=== PATIENT | female | born 1970 | race Caucasian/White ===

== ENCOUNTER 2020-04-23 23:24 | Emergency (ER) | payer BC ==
[~2020-04-23] VITALS: Ht 172.7 cm; Wt 83.5 kg
[~2020-04-23 23:24] MED LIST: VENL75CE5 PO
[2020-04-23 23:32] VITALS: BP 153/99
--- NOTE | 2020-04-23 23:35 | NUR ---
ERMD EVALUATING PT IN TENT
[2020-04-23] MEDS ORDERED: DICYCLOMINE 10 MG CAP PO ONE (23:40)
[2020-04-23] MEDS ORDERED: LOPERAMIDE 2 MG CAP PO ONE (23:40)
[2020-04-23] MEDS ORDERED: ONDANSETRON 4 MG ODT PO ONE (23:40)
[2020-04-23 23:42] VITALS: BP 153/99
--- NOTE | 2020-04-23 23:42 | NUR ---
49 Y/O FEMALE. COVID + SINCE 04/15/20. C/O NAUSEA, VOMITING, DIARRHEA. DENIES ANY PAIN. MEDHX: DENIES ALLERGIES: COEDINE, AMOXICILLIN, PENICILLIN
--- NOTE | 2020-04-24 00:25 | NUR ---
Patient discharged with v/s stable. Written and verbal after care instructions given and explained. Patient alert, oriented and verbalized understanding of instructions. Ambulatory with steady gait. All questions addressed prior to discharge. ID band removed. Patient advised to follow up with PMD. Rx of loperamide and zofran given. Patient educated on indication of medication including possible reaction and side effects. Opportunity to ask questions provided and answered.
== END 2020-04-24 00:25 | disposition home or self-care (01) ==
LOC: MED 23:24
DX: A08.4 Viral intestinal infection, unspecified (principal); Z88.0 Allergy status to penicillin; Z88.1 Allergy status to other antibiotic agents; Z88.5 Allergy status to narcotic agent; Z79.899 Other long term (current) drug therapy; Z98.890 Other specified postprocedural states
CPT/HCPCS: 99284; Q0162

== ENCOUNTER 2021-01-16 03:36 | Emergency (ER) | payer BC ==
[~2021-01-16] VITALS: Ht 172.7 cm; Wt 83.9 kg
[2021-01-16 03:40] VITALS: BP 175/89
[2021-01-16] MEDS ORDERED: predniSONE 20 MG TAB PO ONE (04:05)
[2021-01-16] MEDS ORDERED: diphenhydrAMINE 50 MG CAP PO ONE (04:05)
[2021-01-16] MEDS ORDERED: PRED20TA5 PO (04:40)
[2021-01-16] MEDS ORDERED: PRED50TA2 PO (04:43)
[2021-01-16 04:47] VITALS: BP 167/82
== END 2021-01-16 04:47 | disposition home or self-care (01) ==
LOC: MED 03:36
DX: L53.9 Erythematous condition, unspecified (principal); R21 Rash and other nonspecific skin eruption; T39.1X5A Adverse effect of 4-Aminophenol derivatives, initial encounter; T40.2X5A Adverse effect of other opioids, initial encounter; Z79.899 Other long term (current) drug therapy; Z88.0 Allergy status to penicillin; Z88.5 Allergy status to narcotic agent; Y92.89 Other specified places as the place of occurrence of the external cause
CPT/HCPCS: 99283; J7512; Q0163

== ENCOUNTER 2021-01-16 05:20 | Emergency (ER) | payer BC ==
[~2021-01-16] VITALS: Ht 172.7 cm; Wt 83.9 kg
[~2021-01-16 05:20] MED LIST changes: +PRED20TA5 PO; +PRED50TA2 PO
[2021-01-16 05:22] VITALS: BP 178/100
[2021-01-16] MEDS ORDERED: EPINEPHrine 1 MG/ML AMP ONE (05:31)
[2021-01-16] MEDS ORDERED: LORazepam 1 MG TAB PO ONE (05:35)
[2021-01-16 06:59] VITALS: BP 119/64
== END 2021-01-16 06:34 | disposition home or self-care (01) ==
LOC: MED 05:20
DX: T78.49XA Other allergy, initial encounter (principal); Z79.899 Other long term (current) drug therapy; Z88.0 Allergy status to penicillin; Z88.5 Allergy status to narcotic agent; X58.XXXA Exposure to other specified factors, initial encounter
CPT/HCPCS: 99283; J0171

== ENCOUNTER 2021-05-25 20:45 | Emergency (ER) | payer BC ==
[~2021-05-25] VITALS: Ht 172.7 cm; Wt 86.2 kg
[2021-05-25 21:00] VITALS: BP 204/84
--- NOTE | 2021-05-25 21:00 | NUR ---
to bed ambulatory
--- NOTE | 2021-05-25 21:05 | NUR ---
50 YO/F BIB SELF W C/O L SIDED LOWER TOOTH ACHE/INFECTION X2 DAYS 01/10 NON RAD, +N/D. PT REPORTS TEETH DAMAGE FROM REGURGITATION D/T HX OF GASTRIC SLEEVE. PT DENIES ANY FEVERS OR CHILLS. PT TOOK NORCO AT 1600 W/O RELIEF. PT BP 211/103 WHICH PT RELATES TO HAVING PAIN, DENIES BLURRY VISION, OR DIZZYNESS. PT SITTING IN BED LOCKED IN LOWEST POSITION. BREATHING EVEN AND UNLABORED. NAD NOTED, WILL CONTINUE TO MONITOR. PMH: GASTRIC SLEEVE ALLERGIES: AMOXICILLIN, PENICILLIN, CODEINE
--- NOTE | 2021-05-25 21:10 | NUR ---
PT BP 211/103. ERMD AWARE.
[2021-05-25] MEDS ORDERED: CLIN300C2 PO (21:20)
[2021-05-25] MEDS ORDERED: MORPHINE SULFATE 4 MG/ML SYR IM ONE (21:20)
--- NOTE | 2021-05-25 21:25 | NUR ---
PT EDUCATED ON MORPHINE SIDE EFFECTS. PT REPORTS WILL BE DRIVING HER HOME.
--- NOTE | 2021-05-25 21:48 | NUR ---
Patient discharged with v/s stable. Written and verbal after care instructions given and explained. Patient alert, oriented and verbalized understanding of instructions. Ambulatory with steady gait. All questions addressed prior to discharge. ID band removed. Patient advised to follow up with PMD. Rx of CLEOCIN given. Patient educated on indication of medication including possible reaction and side effects. Opportunity to ask questions provided and answered.
[2021-05-25 21:49] VITALS: BP 204/84
== END 2021-05-25 21:48 | disposition home or self-care (01) ==
LOC: MED 20:45
DX: K08.89 Other specified disorders of teeth and supporting structures (principal); Z88.0 Allergy status to penicillin; Z88.1 Allergy status to other antibiotic agents; Z88.5 Allergy status to narcotic agent; Z79.899 Other long term (current) drug therapy; Z98.890 Other specified postprocedural states; Z88.8 Allergy status to other drugs, medicaments and biological substances
CPT/HCPCS: 81002; 99283; J2270

== ENCOUNTER 2023-03-04 11:19 | Observation (INO) | payer BC ==
[~2023-03-04] VITALS: Ht 172.7 cm; Wt 70.8 kg
[2023-03-04] VITALS (7 sets, daily range): BP systolic 123–143; BP diastolic 60–81; PULSE 74–84; RESP 16–18; TEMP 98–99; O2SAT 99
[~2023-03-04 11:19] MED LIST changes: +CLIN300C2 PO
[2023-03-04] MEDS ORDERED: LACTATED RINGERS 1,000 ML IV STA (11:46)
[2023-03-04 12:25] LABS: BASOPHILS % (AUTO) 0.3 % (0.0-2.0); EOSINOPHILS % (AUTO) 0.1 % (0.0-4.0); HEMATOCRIT 37.2 % (36-48); HEMOGLOBIN 13.2 g/dL (12.0-16.0); LYMPHOCYTES # (AUTO) 0.9 K/uL (2.5-16.5); LYMPHOCYTES % (AUTO) 7.7 % (20.5-51.1); MEAN CORPUSCULAR HEMOGLOBIN 31 pg (27-31); MEAN CORPUSCULAR HGB CONC 36 g/dL (33-37); MEAN CORPUSCULAR VOLUME 86.1 fL (80-94); MONOCYTES # (AUTO) 0.8 K/uL (0.8-1.0); MONOCYTES % (AUTO) 6.5 % (1.7-9.3); NEUTROPHILS # (AUTO) 10.1 K/uL (1.8-7.7); NEUTROPHILS % (AUTO) 85.4 % (42.2-75.2); PLATELET COUNT (AUTO) 359 K/uL (140-450); RED BLOOD CELL COUNT(AUTO) 4.32 MIL/uL (4.20-5.40); RED CELL DISTRIBUTION WIDTH 14.5 % (11.6-13.7); WHITE BLOOD COUNT (AUTO) 11.9 K/uL (4.8-10.8)
[2023-03-04] MEDS ORDERED: ONDANSETRON 4 MG/2 ML VIAL IVP ONE (13:10)
[2023-03-04 13:15] LABS: ALANINE AMINOTRANSFERASE 18 U/L (12-78); ALBUMIN 3.9 g/dL (3.4-5.0); ALKALINE PHOSPHATASE 100 U/L (50-136); ANION GAP 13.1 (8-16); ASPARTATE AMINOTRANSFERASE 17 U/L (15-37); CALCIUM 8.9 mg/dL (8.5-10.1); CARBON DIOXIDE 30.3 mmol/L (21-32); CHLORIDE 105 mmol/L (98-107); CREATININE 0.8 mg/dL (0.6-1.3); GFR ARICAN-AMERICAN 97 mL/min (>90); GFR NON ARICAN-AMERICAN 80 mL/min (>90); GLUCOSE 107 mg/dL (74-106); SODIUM SERUM 146 mmol/L (136-145); TOTAL BILIRUBIN 1.4 mg/dL (0.0-1.0); TOTAL PROTEIN, SERUM 7.3 g/dL (6.4-8.2); UREA NITROGEN, BLOOD 11 mg/dL (7-18)
[2023-03-04 13:17] LABS: POTASSIUM 2.4 mmol/L (3.5-5.1)
[2023-03-04] MEDS ORDERED: MAG SULF 2000 MG/WATER PREMIX 50 ML IV ONE (13:20)
[2023-03-04] MEDS ORDERED: POTASSIUM CHLORIDE 10 MEQ TABER PO ONE (13:20)
[2023-03-04] MEDS ORDERED: KCL 20 MEQ IN 100 mL PREMIX 200 ML IV ONE (13:20)
[2023-03-04] MEDS ORDERED: MORPHINE SULFATE 4 MG/ML SYR IVP ONE (15:15)
[2023-03-04] MEDS: POTASSIUM CHL 20MEQ/D5-NS 1,000 ML IV SCH (17:10)
[2023-03-04] MEDS ORDERED: ESCI20TA49 PO (18:01)
[2023-03-04] MEDS ORDERED: HYDR-4924 PO (18:01)
[2023-03-04] MEDS ORDERED: HYDR25TA32 PO (18:01)
[2023-03-04] MEDS ORDERED: ONDANSETRON 4 MG/2 ML VIAL IVP PRN (20:05)
[2023-03-04] MEDS ORDERED: HYDROcodone/APAP 10/325 MG 1 TAB TAB PO PRN (20:15)
[2023-03-04] MEDS: HYDROcodone/APAP 10/325 MG 1 TAB TAB PO PRN (21:21)
[2023-03-04] MEDS ORDERED: ZOLPIDEM 10 MG TAB PO PRN (22:30)
[2023-03-05] VITALS (8 sets, daily range): BP systolic 107–128; BP diastolic 51–70; PULSE 60–80; RESP 18; TEMP 97.6–99.1; O2SAT 96–99
[2023-03-05] MEDS: POTASSIUM CHL 20MEQ/D5-NS 1,000 ML IV SCH ×2 (04:00→16:55)
[2023-03-05] MEDS: HYDROcodone/APAP 10/325 MG 1 TAB TAB PO PRN ×2 (06:43→12:17)
[2023-03-05 07:03] LABS: BASOPHILS % (AUTO) 0.8 % (0.0-2.0); EOSINOPHILS # (AUTO) 0.1 K/uL (0-0.4); EOSINOPHILS % (AUTO) 1.4 % (0.0-4.0); HEMATOCRIT 30.2 % (36-48); HEMOGLOBIN 10.8 g/dL (12.0-16.0); LYMPHOCYTES # (AUTO) 1.6 K/uL (2.5-16.5); LYMPHOCYTES % (AUTO) 28.4 % (20.5-51.1); MEAN CORPUSCULAR HEMOGLOBIN 31 pg (27-31); MEAN CORPUSCULAR HGB CONC 36 g/dL (33-37); MEAN CORPUSCULAR VOLUME 87.5 fL (80-94); MONOCYTES # (AUTO) 0.4 K/uL (0.8-1.0); MONOCYTES % (AUTO) 6.9 % (1.7-9.3); NEUTROPHILS # (AUTO) 3.4 K/uL (1.8-7.7); NEUTROPHILS % (AUTO) 62.5 % (42.2-75.2); PLATELET COUNT (AUTO) 252 K/uL (140-450); RED BLOOD CELL COUNT(AUTO) 3.45 MIL/uL (4.20-5.40); RED CELL DISTRIBUTION WIDTH 14.5 % (11.6-13.7); WHITE BLOOD COUNT (AUTO) 5.5 K/uL (4.8-10.8)
[2023-03-05 07:39] LABS: ALBUMIN 2.7 g/dL (3.4-5.0); ANION GAP 10.1 (8-16); CALCIUM 7.6 mg/dL (8.5-10.1); CARBON DIOXIDE 28.3 mmol/L (21-32); CREATININE 0.7 mg/dL (0.6-1.3); MAGNESIUM 1.9 mg/dL (1.8-2.4); TOTAL BILIRUBIN 0.8 mg/dL (0.0-1.0); TOTAL PROTEIN, SERUM 5.3 g/dL (6.4-8.2)
[2023-03-05 07:43] LABS: POTASSIUM 2.4 mmol/L (3.5-5.1)
[2023-03-05] MEDS ORDERED: KCL 20 MEQ IN 100 mL PREMIX 200 ML IV ONE (08:15)
[2023-03-05] MEDS ORDERED: POTASSIUM CHLORIDE 10 MEQ TABER PO ONE (08:15)
[2023-03-05] MEDS ORDERED: VENLAFAXINE 37.5 MG TAB PO SCH (09:00)
[2023-03-05] MEDS ORDERED: ENOXAPARIN 40 MG/0.4 ML SYR SUBQ SCH (09:00)
[2023-03-05] MEDS ORDERED: ONDA8TAB87 PO (13:59)
[2023-03-05] MEDS ORDERED: POTASSIUM CHLORIDE 10 MEQ TABER PO SCH (15:12)
[2023-03-05] MEDS ORDERED: POTA10TA70 PO (15:56)
== END 2023-03-05 18:35 | disposition home or self-care (01) ==
LOC: MED 11:19 → MTU 15:55
PROVIDERS: ADMIT Internal Medicine; ATTEND Internal Medicine
DX: E87.6 Hypokalemia (principal); R42 Dizziness and giddiness; R55 Syncope and collapse; I10 Essential (primary) hypertension; E66.9 Obesity, unspecified; Z88.0 Allergy status to penicillin; Z79.899 Other long term (current) drug therapy; Z98.84 Bariatric surgery status; W19.XXXA Unspecified fall, initial encounter; Y93.89 Activity, other specified; Y92.89 Other specified places as the place of occurrence of the external cause; Y99.8 Other external cause status
CPT/HCPCS: 36415; 71045; 80053; 83735; 84132; 84484; 85025; 87081; 93005; 96365; 96366; 96368; 96375; 99285; G0378; J2270; J2405; J3475; J3480; J1650